=== PATIENT | female | born 1955 | race Caucasian/White ===

== ENCOUNTER 2023-03-05 12:16 | Inpatient (IN) | payer MEDICARE, OTHER ==
[~2023-03-05] VITALS: Ht 160 cm; Wt 51.7 kg
[2023-03-05] MEDS ORDERED: IV NORMAL SALINE 500 ML BAG IV ONE (12:30)
[2023-03-05] MEDS ORDERED: ASCO500C18 PO (13:00)
[2023-03-05] MEDS ORDERED: ROSU20TA2 PO (13:00)
[2023-03-05] MEDS ORDERED: PYRI25TA4 PO (13:00)
[2023-03-05] MEDS ORDERED: ACET-2605 PO (13:00)
[2023-03-05] MEDS ORDERED: CRAN500T PO (13:00)
[2023-03-05] MEDS ORDERED: ESCI20TA44 PO (13:00)
[2023-03-05] MEDS ORDERED: CYAN100T44 PO (13:00)
[2023-03-05] MEDS ORDERED: PYRI100T18 PO (13:00)
[2023-03-05] MEDS ORDERED: ASPI81TA31 PO (13:00)
[2023-03-05] MEDS ORDERED: FOLI1TAB94 PO (13:00)
[2023-03-05 13:11] LABS: CARBON DIOXIDE 19 mmol/L (21-32); CHLORIDE 95 mmol/L (98-107); CREATININE 1.6 mg/dL (0.6-1.3); GLUCOSE 115 mg/dL (74-106); POTASSIUM 3.9 mmol/L (3.5-5.1); UREA NITROGEN, BLOOD 23 mg/dL (7-18)
--- NOTE | 2023-03-05 13:16 | NUR ---
Pt seen by MD for bedside Eval. Safety measures in place. Will continue to monitor.
[2023-03-05 13:23] LABS: ALANINE AMINOTRANSFERASE 39 U/L (14-59); ALKALINE PHOSPHATASE 83 U/L (50-136); ASPARTATE AMINOTRANSFERASE 51 U/L (15-37); BILIRUBIN,DIRECT 0.3 mg/dL (0.0-0.2); BILIRUBIN,TOTAL 1.1 mg/dL (0.2-1.0)
[2023-03-05 13:45] LABS: HEMATOCRIT 40.3 % (31.2-41.9); MEAN CORPUSCULAR HEMOGLOBIN 30.9 uug (24.7-32.8); MEAN CORPUSCULAR VOLUME 89.7 fL (75.5-95.3); PLATELET COUNT (AUTO) 300 K/uL (179-408)
--- NOTE | 2023-03-05 14:30 | NUR ---
Contacted Dr. Jessee Schaeffer's office as instructed by Dr. Martini. Gloria answered and stated Dr. Schaeffer will answer back. Our call was placed as "urgent." Currently awaiting call back. Safety measures in place. Will continue to monitor.
--- NOTE | 2023-03-05 14:57 | NUR ---
Administered Castano catheter. Pt tolerated well. Sent urine to lab.
[2023-03-05 15:02] LABS: *BILIRUBIN,URIN 2+ (NEGATIVE); *BLOOD, URINE 2+ (NEGATIVE); *CLARITY,URINE CLEAR (CLEAR); *COLOR,URINE YELLOW (YELLOW); *KETONES,URINE 4+ (NEGATIVE); *UROBILINOGEN,URINE 0.2 E.U./dl (NORMAL); LEUKOCYTE ESTERASE ,URINE NEGATIVE (NEGATIVE); NITRITE, URINE NEGATIVE (NEGATIVE); UGLUCOSE NEGATIVE (NEGATIVE)
[2023-03-05 15:19] LABS: BACTERIA,URINE FEW /HPF (NONE SEEN); CALCIUM CARBONATE CRYSTALS,UR NONE SEEN /HPF (NONE SEEN); CALCIUM OXALATE CRYSTALS,UR NONE SEEN /HPF (NONE SEEN); CALCIUM PHOSPHATE CRYSTALS,UR NONE SEEN /HPF (NONE SEEN); COARSE GRANULAR CASTS,URINE NONE SEEN /LPF; CYSTINE CRYSTALS,URINE NONE SEEN /HPF (NONE SEEN); FATTY CASTS,URINE NONE SEEN /LPF (NONE SEEN); MUCUS,URINE NONE SEEN /LPF (0-FEW); RBC,URINE 0-3 /HPF (0-3); RED BLOOD CELL CASTS,URINE NONE SEEN /LPF (NONE SEEN); SPERM,URINE NONE SEEN /HPF (NONE SEEN); SQUAMOUS EPITHELIAL CELL,UR FEW /HPF (NONE SEEN); TRICHOMONAS,URINE NONE SEEN /HPF (NONE SEEN); TRIPLE PHOSPHATE CRYSTAL,UR NONE SEEN /HPF (NONE SEEN); TYROSINE CRYSTAL,URINE NONE SEEN /HPF (NONE SEEN); URIC ACID CRYSTALS,URINE NONE SEEN /HPF (NONE SEEN); URINE AMORPHOUS PHOSPHATES NONE SEEN /HPF; URINE AMORPHOUS URATE NONE SEEN /HPF; WAXY CASTS,URINE NONE SEEN /LPF (NONE SEEN); WBC,URINE NONE SEEN /HPF (0-3); YEAST,URINE NONE SEEN /HPF (NONE SEEN)
[2023-03-05] MEDS ORDERED: IV NORMAL SALINE 1000 ML BAG IV ONE (16:00)
[2023-03-05] MEDS ORDERED: ACETAMINOPHEN 325 MG TABLET PO PRN (16:45)
[2023-03-05] MEDS ORDERED: ONDANSETRON 4 MG/2 ML VIAL IV PRN (16:45)
[2023-03-05] MEDS ORDERED: REMEDY ESSENTIAL ZINC PASTE 113 GM TP PRN (16:45)
[2023-03-05] MEDS ORDERED: MAGNESIUM HYDROXIDE 30 ML LIQUID UDC PO PRN (16:45)
[2023-03-05] MEDS ORDERED: ACETAMINOPHEN ES 500 MG TABLET- SA PATIENTS-PAIN ONLY PO SCH (17:00)
[2023-03-05] MEDS ORDERED: LACTULOSE 20 G/30 ML LIQUID UDC PO ONE (17:00)
[2023-03-05] MEDS ORDERED: ACETAMINOPHEN ES 500 MG TABLET ONE (17:20)
[2023-03-05 17:25] LABS: ABG BASE EXCESS -5.3 mmol/L; ABG HCO3 14.5 mmol/L; ABG PCO2 16.8 mmHg (35.0-45.0); ABG PH 7.554 (7.350-7.450); ABG PO2 98.9 mmHg (75.0-100.0); ABG SITE RIGHT RADIAL; ABG TOTAL HEMOGLOBIN 12.3 G/dL (12.0-16.0); COHb 0.3 % (0.5-1.5); MetHb 0.2 % (0.0-1.5); O2Hb 97.4 % (94.0-97.0)
--- NOTE | 2023-03-05 17:27 | NUR ---
Pt to be going to Rm [facility]. Contacted 3rd floor on who will be RN taking Pt. Was told by Nettie that we will receive a call later.
--- NOTE | 2023-03-05 18:02 | NUR ---
Gave report to Taylor BERRY). Safety measures in place. Will continue to monitor.
--- NOTE | 2023-03-05 18:34 | NUR ---
Pt. admitted to [facility]; M/S , under care of Cami Dawkins. Belongs List completed. Pt transferred in stable condition. Belongings given to 3rd floor.
--- NOTE | 2023-03-05 18:45 | NUR ---
Received admission from ER via stretcher 67y/o female. Patient alert, awake and oriented. With ongoing IVF NS at 100cc/hr jagdeep cath at right chest g. 19 and mayorga catheter connected to urine bag draining well. Denies any pain, no SOB. Routine admission care done. Safety measures initiated and call light within reached. Vital signs taken and recorded. Attended
[2023-03-05 18:57] VITALS: BP 95/56
[2023-03-05 20:00] VITALS: BP 96/47
[2023-03-05] MEDS: IV NS 1000 ML 1,000 ML IV PRN (20:05)
[2023-03-06 04:00] VITALS: BP 101/54
[2023-03-06] MEDS: IV NS 1000 ML 1,000 ML IV PRN ×2 (06:46→16:54)
--- NOTE | 2023-03-06 06:55 | NUR ---
Slept well throughout the night, no complain of abdominal pain. Not in respiratory distress. NPO for retroperitoneal US in the morning. Needs assessed and attended to.
[2023-03-06 06:59] LABS: HEMATOCRIT 31.8 % (31.2-41.9); MEAN CORPUSCULAR HEMOGLOBIN 31.9 uug (24.7-32.8); MEAN CORPUSCULAR VOLUME 88.7 fL (75.5-95.3); PLATELET COUNT (AUTO) 217 K/uL (179-408)
[2023-03-06 07:09] LABS: CARBON DIOXIDE 24 mmol/L (21-32); CHLORIDE 103 mmol/L (98-107); GLUCOSE 88 mg/dL (74-106); MAGNESIUM 2.1 mg/dL (1.8-2.4); PHOSPHOROUS 1.6 mg/dL (2.5-4.9); UREA NITROGEN, BLOOD 18 mg/dL (7-18)
[2023-03-06 07:26] LABS: POTASSIUM 2.8 mmol/L (3.5-5.1)
--- NOTE | 2023-03-06 07:30 | NUR ---
Received call from lab c/o Teddy re: critical lab result Potassium 2.8, reported to Cami Booker NP with new order Potassium 40 meq. Endorsed to morning shift.
[2023-03-06] MEDS ORDERED: POTASSIUM CHLORIDE 20 MEQ TAB.PRT.SR PO ONE (08:00)
[2023-03-06] MEDS ORDERED: Medication Not On Formulary EA (Cranberry Fruit (Cranberry) 450 MG) PO SCH (09:00)
[2023-03-06] MEDS: CYANOCOBALAMIN 100 MCG TABLET PO SCH (09:25)
[2023-03-06] MEDS: ASPIRIN 81 MG TAB.CHEW PO SCH (09:25)
[2023-03-06] MEDS: FOLIC ACID 1 MG TABLET PO SCH (09:26)
[2023-03-06] MEDS: ASCORBIC ACID 500 MG TABLET PO SCH (09:26)
[2023-03-06] MEDS: PYRIDOXINE HCL 100 MG TABLET PO SCH (09:29)
[2023-03-06] MEDS ORDERED: ESCITALOPRAM OXALATE 10 MG TABLET PO SCH (09:30)
[2023-03-06] MEDS ORDERED: ACETAMINOPHEN ES 500 MG TABLET PO SCH (10:00)
[2023-03-06 11:51] VITALS: BP 119/59
[2023-03-06 13:54] VITALS: BP_SYST 115; BP_SYST 122; BP_SYST 124; BP_DIAS 57; BP_DIAS 63; BP_DIAS 70
[2023-03-06 15:32] VITALS: BP 116/68
[2023-03-06] MEDS ORDERED: NEUTRA PHOS PACKET PO ONE (17:00)
[2023-03-06] MEDS: ATORVASTATIN 40 MG TABLET PO SCH (17:01)
--- NOTE | 2023-03-06 17:36 | NUR ---
Pt. has been stable during the shift. No c/o pain. call light within reach. Able to make the need known. No change in condition noted. All schedule meds given and no adverse reaction noted. Kept the pt. clean and dry. Will keep monitoring the patient.
[2023-03-06 20:00] VITALS: BP 103/58
[2023-03-07] MEDS: IV NS 1000 ML 1,000 ML IV PRN ×2 (02:33→12:39)
[2023-03-07 05:53] VITALS: BP 113/64
[2023-03-07 06:20] LABS: HEMATOCRIT 30.5 % (31.2-41.9); MEAN CORPUSCULAR HEMOGLOBIN 32.2 uug (24.7-32.8); MEAN CORPUSCULAR VOLUME 88.6 fL (75.5-95.3); PLATELET COUNT (AUTO) 192 K/uL (179-408)
[2023-03-07 06:45] LABS: CREATININE 0.8 mg/dL (0.6-1.3); MAGNESIUM 1.7 mg/dL (1.8-2.4)
[2023-03-07 07:18] LABS: POTASSIUM 2.4 mmol/L (3.5-5.1)
--- NOTE | 2023-03-07 07:48 | NUR ---
Critical lab result Potassium 2.4 relayed to Cami Booker NP awaiting call back. Endorsed to morning shift.
[2023-03-07] MEDS: ASCORBIC ACID 500 MG TABLET PO SCH (08:17)
[2023-03-07] MEDS: ASPIRIN 81 MG TAB.CHEW PO SCH (08:17)
[2023-03-07] MEDS: FOLIC ACID 1 MG TABLET PO SCH (08:17)
[2023-03-07] MEDS: CYANOCOBALAMIN 100 MCG TABLET PO SCH (08:17)
[2023-03-07] MEDS: PYRIDOXINE HCL 100 MG TABLET PO SCH (08:20)
--- NOTE | 2023-03-07 11:00 | NUR ---
pt walk in the hallway with pt no c/o pain and sob noted ,
[2023-03-07 12:00] VITALS: BP 118/69
[2023-03-07] MEDS: MAGNESIUM SULFATE/D5W 100 ML IV SCH ×2 (12:35→13:38)
[2023-03-07] MEDS ORDERED: POTASSIUM CHLORIDE 20 MEQ TAB.PRT.SR PO ONE (14:00)
[2023-03-07] MEDS ORDERED: POTASSIUM PHOSPHATE MM 7.5 MMOL in IV NORMAL SALINE 97.5 ML IV ONE (14:00)
[2023-03-07 15:25] VITALS: BP 108/61
[2023-03-07] MEDS: ATORVASTATIN 40 MG TABLET PO SCH (18:08)
[2023-03-07 20:30] VITALS: BP 114/59
--- NOTE | 2023-03-07 21:15 | NUR ---
in bed sleeping call light with in reach no c/o pain noted vs are stable
[2023-03-08] MEDS: IV NS 1000 ML 1,000 ML IV PRN ×2 (02:35→17:42)
[2023-03-08 04:00] VITALS: BP 108/57
--- NOTE | 2023-03-08 05:11 | NUR ---
Patient resting in bed comfortably. no s/s of sob or pain noted.
[2023-03-08 05:58] LABS: HEMATOCRIT 28.5 % (31.2-41.9); MEAN CORPUSCULAR HEMOGLOBIN 31.8 uug (24.7-32.8); MEAN CORPUSCULAR VOLUME 89.3 fL (75.5-95.3); PLATELET COUNT (AUTO) 193 K/uL (179-408)
[2023-03-08] MEDS: LEVOTHYROXINE SODIUM 25 MCG TABLET PO SCH (06:04)
[2023-03-08 06:06] LABS: CREATININE 0.8 mg/dL (0.6-1.3)
[2023-03-08 06:07] LABS: POTASSIUM 2.6 mmol/L (3.5-5.1)
--- NOTE | 2023-03-08 06:26 | NUR ---
Critical lab result Potassium 2.[address] MIN NEW ORDERS RECEIVED NOTED AND CARRIED OUT
[2023-03-08] MEDS: POTASSIUM CHLORIDE 50 ML IV SCH ×8 (08:19→16:18)
[2023-03-08] MEDS: CYANOCOBALAMIN 100 MCG TABLET PO SCH (08:27)
[2023-03-08] MEDS: FOLIC ACID 1 MG TABLET PO SCH (08:27)
[2023-03-08] MEDS: ASPIRIN 81 MG TAB.CHEW PO SCH (08:27)
[2023-03-08] MEDS: ASCORBIC ACID 500 MG TABLET PO SCH (08:27)
[2023-03-08] MEDS: PYRIDOXINE HCL 100 MG TABLET PO SCH (08:27)
[2023-03-08 11:47] VITALS: BP 107/61
[2023-03-08] MEDS ORDERED: POTASSIUM CHLORIDE 10 MEQ TAB.PRT.SR PO ONE (12:30)
[2023-03-08 15:56] VITALS: BP 106/61
[2023-03-08] MEDS: ATORVASTATIN 40 MG TABLET PO SCH (17:11)
--- NOTE | 2023-03-08 19:30 | NUR ---
Received patient lying in bed awake, alert and oriented. No complain of pain . Vital signs stable Needs attended call light with in reach
[2023-03-08 20:15] VITALS: BP 115/65
--- NOTE | 2023-03-09 00:32 | NUR ---
Patient resting in bed comfortably. no s/s of sob or pain noted.
[2023-03-09 04:15] VITALS: BP 108/60
[2023-03-09] MEDS: LEVOTHYROXINE SODIUM 25 MCG TABLET PO SCH (06:02)
--- NOTE | 2023-03-09 06:13 | NUR ---
end shift report Pt. has been stable during the shift. No c/o pain. call light within reach. Able to make the need known. No change in condition noted. All schedule Meds given Kept the pt. clean and dry. Will keep monitoring the patient.
[2023-03-09 07:34] LABS: CREATININE 0.7 mg/dL (0.6-1.3); MAGNESIUM 1.7 mg/dL (1.8-2.4); POTASSIUM 3.3 mmol/L (3.5-5.1)
[2023-03-09] MEDS: POTASSIUM CHLORIDE 50 ML IV SCH ×2 (08:35→10:12)
[2023-03-09] MEDS: FOLIC ACID 1 MG TABLET PO SCH (08:37)
[2023-03-09] MEDS: PYRIDOXINE HCL 100 MG TABLET PO SCH (08:37)
[2023-03-09] MEDS: ASCORBIC ACID 500 MG TABLET PO SCH (08:37)
[2023-03-09] MEDS: ASPIRIN 81 MG TAB.CHEW PO SCH (08:37)
[2023-03-09] MEDS: CYANOCOBALAMIN 100 MCG TABLET PO SCH (08:37)
[2023-03-09] MEDS ORDERED: CALCIUM CARBONATE 500 MG TABLET PO SCH (09:00)
[2023-03-09] MEDS ORDERED: POTASSIUM CHLORIDE 20 MEQ TAB.PRT.SR PO ONE (10:00)
[2023-03-09] MEDS ORDERED: MAGNESIUM OXIDE 400 MG TABLET PO ONE (10:00)
[2023-03-09 11:44] VITALS: BP 120/64
[2023-03-09] MEDS ORDERED: LEVO25TA9 PO (13:36)
[2023-03-09] MEDS ORDERED: CALC500T53 PO (13:36)
[2023-03-09 15:30] VITALS: BP 116/62
--- NOTE | 2023-03-09 18:07 | NUR ---
PATIENT IS STABLE, NO SOB, RESPIRATION ARE EVEN NONLABORED, SKIN WARM AND DRY TO TOUCH, PATIENT DISCHARGED TO [facility], REPORT GIVEN TO TROY, BELONGINGINGS ARE ACCOUNTED AND SIGNED, ID REMOVED, AND DEACCESS FITZ CATH AT RIGHT CHEST. NO SIGNS AND SYMPTOMS OF INFECTION NOTED AT PROTA CATH SITE.
== END 2023-03-09 17:50 | DRG 640 ==
LOC: ER 12:16 → MEDSURG3 18:04
PROVIDERS: ADMIT Nurse Practitioner Acute Care; ATTEND Nurse Practitioner Acute Care
DX: E86.9 Volume depletion, unspecified (principal); N17.0 Acute kidney failure with tubular necrosis; M48.54XA Collapsed vertebra, not elsewhere classified, thoracic region, initial encounter for fracture; E87.1 Hypo-osmolality and hyponatremia; E87.20 Acidosis, unspecified; K59.00 Constipation, unspecified; S00.12XA Contusion of left eyelid and periocular area, initial encounter; S00.83XA Contusion of other part of head, initial encounter; W18.39XA Other fall on same level, initial encounter; Y92.89 Other specified places as the place of occurrence of the external cause; R55 Syncope and collapse; Z88.0 Allergy status to penicillin; Z88.8 Allergy status to other drugs, medicaments and biological substances; Z85.038 Personal history of other malignant neoplasm of large intestine; Z92.3 Personal history of irradiation; Z92.21 Personal history of antineoplastic chemotherapy; E78.5 Hyperlipidemia, unspecified; Z90.49 Acquired absence of other specified parts of digestive tract; E03.9 Hypothyroidism, unspecified; E83.39 Other disorders of phosphorus metabolism; E83.42 Hypomagnesemia; E87.6 Hypokalemia; Z79.82 Long term (current) use of aspirin; Z79.899 Other long term (current) drug therapy; M99.51 Intervertebral disc stenosis of neural canal of cervical region
CPT/HCPCS: 36415; 36600; 70450; 70486; 71250; 72125; 83690; 83735; 84100; 84443; 84484; 85025; 85610; 85730; 86850; 86900; 86901; 93005; 93307; A4663; A6209; A6213; A9150; G0378; J3475; J3480; J3490; J7040